=== PATIENT | male | born 1965 | race Caucasian/White ===

== ENCOUNTER 2016-06-06 07:15 | Day surgery (SDC) | payer BC, OTHER ==
[~2016-06-06 07:15] MED LIST: LIDOCAINE W/ SODIUM BICARB 0.5 ML SYR ONE; Lactated Ringers 1,000 ML PRIMARY IV ONE
[2016-06-06 07:41] VITALS: RESP 12
--- NOTE | 2016-06-06 08:38 | GEN.OPNOTE ---
EGD / Colonoscopy Report Surgery Date: 06/06/16 Preoperative Diagnosis: Colon cancer screening. GERD. Postoperative Diagnosis: Same. Procedure: #1 esophagogastroduodenoscopy with biopsy. #2 complete colonoscopy. Surgeon: Jeremy Fernando MD Anesthesia Provider: Lou Rob CRNA Anesthesia Type: MAC Indications: Patient with chronic GERD and a history of peptic ulcer disease for upper endoscopy. Patient needs a lower endoscopy for colon cancer screening. EGD Findings: Esophagus: [Normal] GE Junction : [Irregularity of the Z line with some mounding of the cardiac mucosa.] Fundus : [A few fundic gland polyps.] Body : [Normal] Prepyloric : [Mild erythema] Small Intestine : [Normal] A lubricated flexible upper endoscope was inserted and passed through the esophagus and stomach into the duodenum. The duodenum and duodenal bulb were unremarkable. The pyloric channel was widely patent. There are a few fundic gland polyps but otherwise the stomach looked relatively normal with exception of some mild antral erythema. Multiple biopsies were taken in the antrum. Hemostasis was assured. The scope was withdrawn into the distal esophagus. There was some irregularity of the Z line. Some tongues of inflamed mucosa. Multiple biopsies were taken. Hemostasis was assured. The scope was then withdrawn through the remainder of a normal-appearing esophagus and brought through the hypopharynx under suction completing this portion of the procedure. Colonoscopy Findings: Prep : [Very good] Cecum : [Normal] Ascending : [Normal] Transverse : [Normal] Sigmoid : [Normal] Rectum : [Normal] Digital Rectal Exam : [No perianal pathology. Prostate of normal size and consistency.] A lubricated flexible colonoscope was inserted and passed to the blind end of the cecum. The appendiceal orifice and ileocecal valve were clearly seen. Air was aspirated as the scope was withdrawn. The entire colonoscopy was normal without polyp, tumor, neoplastic mass, infectious or inflammatory process. The scope was withdrawn completing the procedure. Patient tolerated the entire procedure well without complication. He was taken to outpatient surgery in stable condition. Follow-up will be with my office on an as-needed basis. We will call the biopsy results when available and plan therapy and follow-up accordingly. Patient should have a colonoscopy in 10 years time.
[2016-06-06 09:09] VITALS: TEMP 97.6
== END 2016-06-06 09:00 | disposition home or self-care (01) ==
LOC: SDSC 07:15
PROVIDERS: ATTEND Surgery
DX: K21.9 Gastro-esophageal reflux disease without esophagitis (principal); Z12.11 Encounter for screening for malignant neoplasm of colon; Z87.11 Personal history of peptic ulcer disease
CPT/HCPCS: 43239; 45378; J2704; J7120

== ENCOUNTER → 2016-10-31 | Outpatient (CLI) | payer BC ==
--- NOTE | 2016-10-31 15:30 | DI ---
CT ABDOMEN W/CONTRAST,10/31/2016 10:36 AM: Clinical History: Right sided pain. Previous Exam: None at this facility. Findings: Multiple helically acquired CT images are obtained through the abdomen skeletal structures are unrema rkable. There is loss of intervertebral disc height at the L4/5 level with endplate osteophyte formation. The lung bases are clear. Following the intravenous administration of contrast. The liver, spleen, adrenals, kidneys and pancreas are unremarkable. The gallbladder is normal. Patient is status post appendectomy. Impression: No acute intra-abdominal pathology.
== END ==
LOC: CT 10:32
PROVIDERS: ATTEND Chiropractor
DX: Z01.812 Encounter for preprocedural laboratory examination (principal); R10.84 Generalized abdominal pain
CPT/HCPCS: 36415; 74160; 82565; 84520